=== PATIENT | male | born 1965 | race Caucasian/White ===

== ENCOUNTER 2018-12-06 15:23 | Emergency (ER) | payer OTHER ==
[~2018-12-06] VITALS: Ht 185.4 cm; Wt 104.0 kg
--- NOTE | 2018-12-06 15:51 | PHYS DOC ---
Past History Past Medical History: No Pertinent History Smoking: Non-smoker Alcohol Use: None Drug Use: None Adult General Chief Complaint Chief Complaint: DIZZY/LIGHT HEADED HPI HPI Patient is a 53-year-old male presents with dizziness that happened last night. He had nausea vomiting and diaphoresis with this. He felt weak. Symptoms resolved within 30 minutes. There was no chest pain or palpitations. Worse with head movement. No symptoms today. He was seen at his clinic and sent here for further evaluation. He is otherwise healthy.[] Review of Systems Review of Systems Constitutional: Denies fever or chills [] Eyes: Denies change in visual acuity, redness, or eye pain [] HENT: Denies nasal congestion or sore throat [] Respiratory: Denies cough or shortness of breath [] Cardiovascular: No chest pain or palpitations[] GI: Denies abdominal pain, nausea, vomiting, bloody stools or diarrhea [] : Denies dysuria or hematuria [] Musculoskeletal: Denies back pain or joint pain [] Integument: Denies rash or skin lesions [] Neurologic: Denies headache, focal weakness or sensory changes [] Endocrine: Denies polyuria or polydipsia [] All other systems were reviewed and found to be within normal limits, except as documented in this note. Physical Exam Physical Exam Constitutional: Well developed, well nourished, no acute distress, non-toxic appearance. [] HENT: Normocephalic, atraumatic, bilateral external ears normal, oropharynx moist, no oral exudates, nose normal. [] Eyes: PERRLA, EOMI, conjunctiva normal, no discharge. [] Neck: Normal range of motion, no tenderness, supple, no stridor. [] Cardiovascular:Heart rate regular rhythm, no murmur [] Lungs & Thorax: Bilateral breath sounds clear to auscultation [] Abdomen: Bowel sounds normal, soft, no tenderness, no masses, no pulsatile masses. [] Skin: Warm, dry, no erythema, no rash. [] Back: No tenderness, no CVA tenderness. [] Extremities: No tenderness, no cyanosis, no clubbing, ROM intact, no edema. [] Neurologic: Alert and oriented X 3, normal motor function, normal sensory function, no focal deficits noted. [] Psychologic: Affect normal, judgement normal, mood normal. [] EKG EKG EKG shows a sinus rhythm at 63 bpm, normal axis, normal QTC, no ST elevations. Interpreted by me at 1550. No old EKG available for comparison.[] Radiology/Procedures Radiology/Procedures AP chest, 12/06/2018: HISTORY: Weakness, dizziness The heart size is normal. The aorta is minimally tortuous. There is minimal scarring over the pulmonary apices. No pulmonary infiltrate is seen. There is no evidence of pleural fluid. IMPRESSION: No acute cardiopulmonary abnormality is detected. CT HEAD WO CONTRAST Indication: Dizziness and weakness. Exposure: One or more of the following individualized dose reduction techniques were utilized for this examination: 1. Automated exposure control 2. Adjustment of the mA and/or kV according to patient size 3. Use of iterative reconstruction technique. Technique: Standard imaging without intravenous contrast. Findings: No prior study for comparison. No evidence of acute intracranial hemorrhage, mass effect, midline shift or abnormal extra-axial fluid collection. Arvizu-white matter distinction is intact. Ventricles and sulci are symmetric. Partially visualized sinuses are clear. No evidence of acute skull abnormality. Orbits appear unremarkable. IMPRESSION: No evidence of acute intracranial hemorrhage or mass effect. [] Course & Med Decision Making Course & Med Decision Making Pertinent Labs and Imaging studies reviewed. (See chart for details) ED course: Patient arrived, was placed in bed, and tolerated exam well. After return lab and imaging studies, these were discussed with the patient voiced understanding. All questions were answered. He was discharged in improved condition. Medical decision making: There is no evidence of intracranial mass or bleed. No evidence of this being a stroke syndrome. No evidence of cardiac dysrhythmia during his emergency room stay, no evidence of this being an acute coronary syndrome. Believe this to of been more of a peripheral vertigo given that this started while patient was bending over, washing dishes at the sink. And resolved quickly.[] Dragon Disclaimer Dragon Disclaimer This electronic medical record was generated, in whole or in part, using a voice recognition dictation system. Departure Departure: Impression: Primary Impression: Dizziness Disposition: 01 HOME, SELF-CARE Condition: IMPROVED Referrals: PCP,NO (PCP) Patient Instructions: Dizziness Additional Instructions: Follow-up with your regular doctor in 2 days. Return to the ER for return of the dizziness, any chest pain, difficulty breathing, or any other concerns. MYRA PLATT DO Dec 06, 2018 15:51
--- NOTE | 2018-12-06 16:06 | RAD ---
CT HEAD WO CONTRAST Indication: Dizziness and weakness. Exposure: One or more of the following individualized dose reduction techniques were utilized for this examination: 1. Automated exposure control 2. Adjustment of the mA and/or kV according to patient size 3. Use of iterative reconstruction technique. Technique: Standard imaging without intravenous contrast. Findings: No prior study for comparison. No evidence of acute intracranial hemorrhage, mass effect, midline shift or abnormal extra-axial fluid collection. Arvizu-white matter distinction is intact. Ventricles and sulci are symmetric. Partially visualized sinuses are clear. No evidence of acute skull abnormality. Orbits appear unremarkable. IMPRESSION: No evidence of acute intracranial hemorrhage or mass effect. Electronically signed by: Celestino Andrade MD (12/06/2018 4:03 PM) [id number]
--- NOTE | 2018-12-06 16:10 | RAD ---
AP chest, 12/06/2018: HISTORY: Weakness, dizziness The heart size is normal. The aorta is minimally tortuous. There is minimal scarring over the pulmonary apices. No pulmonary infiltrate is seen. There is no evidence of pleural fluid. IMPRESSION: No acute cardiopulmonary abnormality is detected. Electronically signed by: Oswaldo Washburn MD (12/06/2018 4:08 PM) [facility]
[2018-12-06 16:19] LABS: BASO % 1 % (0-3); EOS # 0.2 x10^3/uL (0.0-0.7); EOS % 4 % (0-3); HEMATOCRIT 43.4 % (39.0-53.0); HEMOGLOBIN 14.7 g/dL (13.0-17.5); LYMPH # 1.5 x10^3/uL (1.0-4.8); LYMPH % 28 % (24-48); MEAN CORPUSCULAR HEMOGLOBIN 31 pg (25-35); MEAN CORPUSCULAR HGB CONC 34 g/dL (31-37); MEAN CORPUSCULAR VOLUME 90 fL (79-100); MONO # 0.6 x10^3/uL (0.0-1.1); MONO % 11 % (0-9); NEUT % 57 % (31-73); PLATELET COUNT 257 x10^3/uL (140-400); RED BLOOD COUNT 4.81 x10^6/uL (4.30-5.70); RED CELL DISTRIBUTION WIDTH 13.1 % (11.5-14.5); WHITE BLOOD COUNT 5.3 x10^3/uL (4.0-11.0)
[2018-12-06 16:49] LABS: ALBUMIN 3.9 g/dL (3.4-5.0); ALBUMIN/GLOBULIN RATIO 1.1 (1.0-1.7); CALCIUM 8.8 mg/dL (8.5-10.1); CREATININE 1.1 mg/dL (0.7-1.3); GFR 70.6; MAGNESIUM 2.3 mg/dL (1.8-2.4); POTASSIUM 3.9 mmol/L (3.5-5.1); TOTAL BILIRUBIN 0.5 mg/dL (0.2-1.0); TOTAL PROTEIN 7.3 g/dL (6.4-8.2)
[2018-12-06 16:51] VITALS: BP 124/76
[2018-12-06 17:21] LABS: BACTERIA,URINE 0 /HPF (0-FEW); BILIRUBIN,URINE NEG (NEG); CLARITY,URINE CLEAR; COLOR,URINE YELLOW; GLUCOSE,URINE NEG (NEG); NITRITE,URINE NEG (NEG); RBC,URINE 0 /HPF (0-2); SQUAMOUS EPITHELIAL CELL,UR OCC /LPF; UROBILINOGEN,URINE 0.2 mg/dL (0.2 mg/dL); WBC,URINE OCC /HPF (0-4)
--- NOTE | 2018-12-06 17:39 | EKG ---
[address] [address] Test Date: 2018-12-06 Test Time: 15:45:54 Pat Name: COLTON EDMONDS Department: Room: Gender: M Manager Poker: : 1965 Requested By: MYRA PLATT Order Number: [id number] Reading MD: Measurements Intervals [place] Rate: 63 P: 24 IA: 158 QRS: 24 QRSD: 100 T: 16 QT: 370 QTc: 381 Interpretive Statements SINUS RHYTHM QRS(T) CONTOUR ABNORMALITY CONSIDER ANTEROSEPTAL MYOCARDIAL DAMAGE POSSIBLY ABNORMAL ECG RI6.01 No previous ECG available for comparison
== END 2018-12-06 17:36 | disposition home or self-care (01) ==
LOC: ER 15:23
DX: R42 Dizziness and giddiness (principal); R11.2 Nausea with vomiting, unspecified; R61 Generalized hyperhidrosis; R53.1 Weakness
CPT/HCPCS: 36415; 70450; 71045; 80053; 81001; 83735; 83880; 84484; 85025; 85610; 93005; 99285